=== PATIENT | male | born 1985 | race Two or more races ===

== ENCOUNTER 2024-05-21 09:14 | Emergency (ER) | payer MEDICAID, OTHER ==
[~2024-05-21] VITALS: Ht 165.1 cm; Wt 151.4 kg
[2024-05-21 09:35] VITALS: BP 139/85; PULSE 92; RESP 16; TEMP 96.9; O2SAT 98
[2024-05-21] MEDS ORDERED: METH4PAK PO (10:04)
== END 2024-05-21 10:11 | disposition home or self-care (01) ==
LOC: ER 09:14
DX: M65.311 Trigger thumb, right thumb (principal)
CPT/HCPCS: 29125